=== PATIENT | male | born 1940 | race Caucasian/White ===

== ENCOUNTER 2021-12-31 15:31 | Observation (INO) ==
--- NOTE | 2021-12-31 15:53 | Emergency Department Note ---
Impression & Plan Generalized weakness, Gait instability ED Provider Note HISTORY OF PRESENT ILLNESS: Patient is a 81-year-old male presenting with weakness. Patient reports that since yesterday he has been having generalized weakness and difficulty getting around. Daughter at bedside reports it seems to be more his left side than anything. Patient is normally ambulatory without assistive devices, but walking today he has been very unsteady. He denies any chest pain or shortness of breath. Denies any lightheadedness or dizziness. Denies any anticoagulation use. He does not take any medications daily. Reports feeling weak on the left side and left upper and lower extremities. She denies any abdominal pain, nausea or vomiting. Denies any recent fevers. Denies any slurred speech. ROS: Constitutional: No fever, chills, +Weakness Skin: No rash or diaphoresis HENT: No headaches or congestion Eyes: No vision changes Cardio: No chest pain, palpitations or leg swelling Respiratory: No cough, wheezing or shortness of breath GI: No nausea, vomiting, diarrhea, constipation : No dysuria, polyuria MSK: No joint or back pain Neuro: No loss of sensation, confusion, numbness, tingling +left-sided weakness Psychiatric: No mood changes PHYSICAL EXAM: Constitutional: Patient appears in no acute distress. HENT: Head: Normocephalic and atraumatic. Eyes: EOMI, PERRL Mouth/Throat: Mucous membranes moist. Neck: Trachea midline. Neck supple. Cardiovascular: RRR, No murmurs, rubs or gallops. Intact distal pulses. Pulmonary/Chest: No respiratory distress. Breath sounds clear and equal bilaterally. No wheezes or rales. Abdominal: BS +. Abdomen soft, no tenderness, rebound or guarding. Back: No midline spinal tenderness, no paraspinal tenderness, no CVA tenderness. Musculoskeletal: No edema, tenderness or deformity noted. Skin: Warm and dry. No rash, erythema, pallor or cyanosis Psychiatric: Appropriate mood and affect for situation. Neurological: Alert and keenly responsive. Left lower facial droop. Able to raise eyebrows, close eyes, puff mouth, stick out tongue, move tongue left and right and raise palate symmetrically. Able to shrug shoulders. PERRLA. SILT to forehead below eye and at jawline. Can hear soft nose bilaterally. Good finger to nose. Strength 4/5 in LUE and LLE. Strength 5/5 in RUE and RLE. SILT throughout bilateral upper and lower extremities. Slight drift with LUE. MDM: - Vitals signs showed hypertension. - EKG negative for acute ischemic changes. Noted to be sinus bradycardia. - Laboratory workup showed normal WBC; stable electrolytes; normal TSH; normal troponin; normal BNP - CT head wo contrast negative for acute intracranial pathology. - CTA head and neck grossly unremarkable. - Hospitalist, Dr. Tinoco, consulted for admission - 324 mg PO aspirin ordered. - Patient admitted to hospitalist service for further evaluation and management. ASSESSMENT AND PLAN: Diagnosis: generalized weakness; gait instability Plan: admit Past Med/Surg History Medical History (Updated 12/31/21 @ 18:27 by Claudine Aguilera MD) No chronic problems Family History (Updated 02/22/19 @ 23:48 by Wali Keita) Other No significant family history Social History Smoking Status: Former smoker Preferred Language: Indonesian Feels Safe at Home: Yes Allergies Allergies Allergy/AdvReac Type Severity Reaction Status Date / Time No Known Allergies Allergy Verified 12/15/19 20:10 Home Meds Previous Rx's Medication Instructions Recorded meclizine 25 mg tablet 25 mg PO TID PRN dizziness #20 tabs 12/15/19 Results & Data (ED) Vital Signs Vital Signs - 24 hr 12/31/21 15:35 12/31/21 16:08 12/31/21 16:08 Temperature 36.4 C L Temperature Source Temporal Artery Scan Pulse Rate 64 Pulse Rate [Right Finger] 61 Respiratory Rate 18 Respiratory Effort / Characteristics Non-Labored Spontaneous Respiratory Depth Normal Respiratory Pattern Regular Blood Pressure 176/76 H Blood Pressure [Right Arm] 159/77 H Blood Pressure Mean 109 Blood Pressure Mean [Right Arm] 104 Blood Pressure Position Sitting Pulse Oximetry 96 98 98 Oxygen Delivery Method Room Air Room Air Room Air Sepsis Recent Fever Within 48 Hours No Sepsis New/Unexplained Change in Mental Status No Sepsis Action Taken by Nursing No Action Required Pulse Oximetry Post Tiitration 12/31/21 16:58 Temperature Temperature Source Pulse Rate Pulse Rate [Right Finger] Respiratory Rate Respiratory Effort / Characteristics Respiratory Depth Respiratory Pattern Blood Pressure Blood Pressure [Right Arm] Blood Pressure Mean Blood Pressure Mean [Right Arm] Blood Pressure Position Pulse Oximetry Oxygen Delivery Method Room Air Sepsis Recent Fever Within 48 Hours Sepsis New/Unexplained Change in Mental Status Sepsis Action Taken by Nursing Pulse Oximetry Post Tiitration 97 Laboratory Data Result diagrams: 12/31/21 16:00 12/31/21 16:00 Lab Results 12/31/21 12/31/21 12/31/21 Range/Units 16:00 16:00 16:00 WBC 7.00 (4.8-10.8) K/ul RBC 4.68 (4.63-6.08) M/uL Hgb 14.7 (14.0-18.0) g/dl Hct 44.0 (40.1-51.0) % MCV 94.0 (80.0-100.0) fL MCH 31.4 (25.0-34.0) pg MCHC 33.4 (32.0-36.0) g/dL RDW Std Deviation 44.3 (36.4-46.3) fL RDW Coeff of Razia 12.8 (11.5-14.5) % Plt Count 279 (130-400) K/uL MPV 9.2 L (9.4-12.4) fL Immature Gran % (Auto) 0.3 % Neut % (Auto) 60.5 % Lymph % (Auto) 27.4 % Fannin % (Auto) 9.9 % Eos % (Auto) 1.0 % Baso % (Auto) 0.9 % Neut # (Auto) 4.24 (1.4-6.5) K/uL Lymph # (Auto) 1.92 (1.2-3.4) K/uL Fannin # (Auto) 0.69 (0.24-0.82) K/uL Eos # (Auto) 0.07 (0-0.50) K/uL Baso # (Auto) 0.06 (0-0.2) K/uL Immature Gran # (Auto) 0.02 (0.00-0.02) K/uL Sodium 140 (136-145) mmol/L Potassium 4.0 (3.5-5.1) mmol/L Chloride 107 (98-107) mmol/L Carbon Dioxide 28 (21-32) mmol/L Anion Gap 5 (3-11) BUN 13 (6-23) mg/dl Creatinine 0.91 (0.6-1.4) mg/dl Est Cr Clr Drug Dosing 73.9 ml/min Est GFR ( Amer) 92.6 ml/min Est GFR (Non-Af Amer) 79.9 ml/min BUN/Creatinine Ratio 14.3 (10-20) Glucose 99 (70-99(Fasting)) mg/dl Lactate 1.0 (0.4-2.0) mmol/L Calcium 9.4 (8.5-10.1) mg/dl Magnesium 2.2 (1.7-2.4) mg/dl Total Bilirubin 0.8 (0.2-1.0) mg/dl AST 27 (13-39) U/L ALT 27 (7-52) U/L Alkaline Phosphatase 101 (34-104) U/L Troponin I High Sens 8.5 (0-20) pg/ml B-Natriuretic Peptide (0-100) pg/ml Total Protein 7.6 (6.0-8.3) gm/dl Albumin 4.3 (3.4-5.0) gm/dl Globulin 3.3 (2.5-4.0) gm/dl Albumin/Globulin Ratio 1.3 (0.9-2) TSH (0.300-4.500) uIu/ml SARS-CoV-2 (PCR) (Negative) 12/31/21 12/31/21 12/31/21 Range/Units 16:00 16:00 16:00 WBC (4.8-10.8) K/ul RBC (4.63-6.08) M/uL Hgb (14.0-18.0) g/dl Hct (40.1-51.0) % MCV (80.0-100.0) fL MCH (25.0-34.0) pg MCHC (32.0-36.0) g/dL RDW Std Deviation (36.4-46.3) fL RDW Coeff of Razia (11.5-14.5) % Plt Count (130-400) K/uL MPV (9.4-12.4) fL Immature Gran % (Auto) % Neut % (Auto) % Lymph % (Auto) % Fannin % (Auto) % Eos % (Auto) % Baso % (Auto) % Neut # (Auto) (1.4-6.5) K/uL Lymph # (Auto) (1.2-3.4) K/uL Fannin # (Auto) (0.24-0.82) K/uL Eos # (Auto) (0-0.50) K/uL Baso # (Auto) (0-0.2) K/uL Immature Gran # (Auto) (0.00-0.02) K/uL Sodium (136-145) mmol/L Potassium (3.5-5.1) mmol/L Chloride (98-107) mmol/L Carbon Dioxide (21-32) mmol/L Anion Gap (3-11) BUN (6-23) mg/dl Creatinine (0.6-1.4) mg/dl Est Cr Clr Drug Dosing ml/min Est GFR ( Amer) ml/min Est GFR (Non-Af Amer) ml/min BUN/Creatinine Ratio (10-20) Glucose (70-99(Fasting)) mg/dl Lactate (0.4-2.0) mmol/L Calcium (8.5-10.1) mg/dl Magnesium (1.7-2.4) mg/dl Total Bilirubin (0.2-1.0) mg/dl AST (13-39) U/L ALT (7-52) U/L Alkaline Phosphatase (34-104) U/L Troponin I High Sens (0-20) pg/ml B-Natriuretic Peptide 36 (0-100) pg/ml Total Protein (6.0-8.3) gm/dl Albumin (3.4-5.0) gm/dl Globulin (2.5-4.0) gm/dl Albumin/Globulin Ratio (0.9-2) TSH 3.014 (0.300-4.500) uIu/ml SARS-CoV-2 (PCR) NEGATIVE (Negative) Administered Medications Discontinued Medications Ioversol (Optiray 320 500ml) 104 ml IV ONCE ONE Stop: 12/31/21 17:09 Last Admin: 12/31/21 17:10 Dose: 104 ml Documented By: KIMANI Imaging Data Radiologist's Impression: Chest X-Ray 12/31/21 15:53 SINGLE VIEW CHEST CLINICAL HISTORY: Generalized weakness. FINDINGS: 2 AP, portable, upright chest radiographs are compared to study dated 12/15/2019. The examination is degraded by portable technique and patient rotation. The heart is enlarged noting atherosclerotic calcification of the thoracic aorta. The pulmonary vasculature is noncongested. Chronic interstitial thickening is similar to previous. The lungs and pleural spaces are clear noting bibasilar atelectasis. No pneumothorax is seen. The skeletal structures are osteopenic. The bony thorax is grossly intact. Arthritic change is seen in the left shoulder. Cholecystectomy clips are seen in the right upper quadrant. IMPRESSION: Cardiomegaly with no acute cardiopulmonary abnormality. ACT 112: Negative or not required by law. Electronically signed by: Ethan Carroll M.D. 12/31/2021 4:[address] 12/31/21 15:53 CT OF THE HEAD WITHOUT CONTRAST CLINICAL HISTORY: left-sided facial droop and left sided weakness COMPARISON STUDY: Head CT December 15, 2019. TECHNIQUE: Helical axial images of the head were obtained without IV contrast. Automated exposure control was utilized for the study. A dose lowering technique was utilized adhering to the principles of ALARA. FINDINGS: No acute intracranial hemorrhage, midline shift or mass effect is present. White matter hypodensities are similar to prior exam and favor small vessel disease. The ventricular system is unremarkable. The basal cisterns are patent. No extra-axial collections are present. There are no findings to suggest acute dural sinus thrombosis or acute territorial infarct. No significant calvarial abnormalities are present. Visualized portions of the sinuses and mastoid air cells are clear. IMPRESSION: No acute intracranial findings. ACT 112: Negative or not required by law. Electronically signed by: Mehdi Garza M.D. 12/31/2021 5:21 PM Head CTA 12/31/21 15:53 CTA ANGIOGRAPHY OF THE HEAD CLINICAL HISTORY: Left-sided weakness. COMPARISON STUDY: No previous studies for comparison. TECHNIQUE: Helical axial images of the head were obtained following uneventful intravenous administration of 104 cc of Optiray. Sagittal and coronal reconstructions were viewed as well as maximal intensity projections on an independent 3-D workstation. Automated exposure control was utilized for the study. A dose lowering technique was utilized adhering to the principles of ALARA. CT DOSE: 1124.13 mGy.cm FINDINGS: Brain volume is normal. Ventricular system is normal. Basal cisterns are patent. There are no extra-axial collections. Please note that the head CT will be reported separately. No acute hemorrhage was noted on this exam. The bilateral M1, M2, A1 and A2 segments are patent. There is no intracranial aneurysm. Large bilateral posterior communicating arteries are present. The posterior circulation is intact. There is no intracranial aneurysm. No central vessel occlusion is present. Major dural sinuses are patent. IMPRESSION: No central vessel occlusion. No intracranial aneurysm. ACT 112: Negative or not required by law. Electronically signed by: Mehdi Garza M.D. 12/31/2021 5:27 PM Neck CTA 12/31/21 15:53 CT angio neck with con CLINICAL HISTORY: 81 years-old Male with left-sided weakness. Acute left- sided facial droop with strokelike symptoms COMPARISON STUDY: CTA had of same day TECHNIQUE: Following the IV administration of 104 of Optiray, CT angiogram of the neck was performed from the aortic arch to the skull base. Images are reviewed in the axial, sagittal, and coronal planes. 3-D MIPS images are created and assessed. IV contrast was administered without complication. All measurements were calculated based on NASCET criteria. A dose lowering technique was utilized adhering to the principles of ALARA. FINDINGS: Three-vessel morphology of the thoracic aortic arch. Patency of the innominate and imaged subclavian arteries. Patency of the common and internal carotid arteries. Ulcerative plaque versus web involves the proximal cervical segment right ICA, image 232 series 6. Less than 50% luminal narrowing involves the proximal left ICA secondary to atheromatous plaque. The vertebral arteries are codominant and widely patent. Mild luminal narrowing with tortuosity of the proximal left vertebral artery origin. Basilar artery appears patent. Lung apices appear clear. There is no pneumothorax. Hypodense 1.2 cm right-sided thyroid nodule. Unremarkable soft tissues of the neck. Degenerative changes of the cervical spine. IMPRESSION:No arterial occlusion, high-grade stenosis, aneurysm or dissection. ACT 112: Negative or not required by law. The above report was generated using voice recognition software. It may contain grammatical, syntax or spelling errors. Electronically signed by: Sudarshan Powell M.D. 12/31/2021 5:50 PM Discharge Plan Visit Data Chief Complaint: Weakness Stated Complaint: GEN WEAKNESS MORE LEFT THAN RIGHT, ED Provider: Claudine Aguilera Discharge Problem: Generalized weakness, Gait instability Patient Disposition: Admitted As Inpatient Forms Stand Alone Forms: [facility] [employer] Prescriptions Prescriptions: No Action meclizine 25 mg tablet 25 mg PO TID PRN (Reason: dizziness) Qty: 20 0RF Referrals Referrals: Mak Avalos MD [Primary Care Provider] -
[2021-12-31 16:14] LABS: Basophils # (auto) 0.06 K/uL (0-0.2); Basophils % (auto) 0.9 %; Eosinophils # (auto) 0.07 K/uL (0-0.50); Hemoglobin 14.7 g/dl (14.0-18.0); Immature Granulocytes # (auto) 0.02 K/uL (0.00-0.02); Immature Granulocytes % (auto) 0.3 %; Lymphocytes # (auto) 1.92 K/uL (1.2-3.4); Lymphocytes % (auto) 27.4 %; Mean Corpuscular Hemoglobin 31.4 pg (25.0-34.0); Mean Corpuscular Hgb Conc 33.4 g/dL (32.0-36.0); Mean Platelet Volume 9.2 fL (9.4-12.4); Monocytes # (auto) 0.69 K/uL (0.24-0.82); Monocytes % (auto) 9.9 %; Neutrophils # (auto) 4.24 K/uL (1.4-6.5); Neutrophils % (auto) 60.5 %; Platelet Count 279 K/uL (130-400); RDW Coefficient of Variation 12.8 % (11.5-14.5); RDW Standard Deviation 44.3 fL (36.4-46.3); Red Blood Count 4.68 M/uL (4.63-6.08)
--- NOTE | 2021-12-31 16:14 | XRay Report ---
SINGLE VIEW CHEST CLINICAL HISTORY: Generalized weakness. FINDINGS: 2 AP, portable, upright chest radiographs are compared to study dated 12/15/2019. The examin ation is degraded by portable technique and patient rotation. The heart is enlarged noting atheroscle rotic calcification of the thoracic aorta. The pulmonary vasculature is noncongested. Chronic interst itial thickening is similar to previous. The lungs and pleural spaces are clear noting bibasilar atel ectasis. No pneumothorax is seen. The skeletal structures are osteopenic. The bony thorax is grossly intact. Arthritic change is seen in the left shoulder. Cholecystectomy clips are seen in the right up per quadrant. IMPRESSION: Cardiomegaly with no acute cardiopulmonary abnormality. ACT 112: Negative or not required by law. Electronically signed by: Ethan Carroll M.D. 12/31/2021 4:12 PM
[2021-12-31 16:40] LABS: Troponin I High Sensitivity 8.5 pg/ml (0-20)
[2021-12-31 16:51] LABS: Albumin Globulin Ratio 1.3 (0.9-2); Albumin Level 4.3 gm/dl (3.4-5.0); BUN Creatinine Ratio 14.3 (10-20); Bilirubin,Total 0.8 mg/dl (0.2-1.0); Calcium 9.4 mg/dl (8.5-10.1); Creatinine Clr Calc Pharmacy 73.9 ml/min; Est GFR (African American) 92.6 ml/min; Est GFR (Non-African American) 79.9 ml/min; Globulin 3.3 gm/dl (2.5-4.0); Magnesium 2.2 mg/dl (1.7-2.4); Total Protein 7.6 gm/dl (6.0-8.3)
[2021-12-31] MEDS ORDERED: OPTIRAY 320 500ml IV ONE (17:08)
--- NOTE | 2021-12-31 17:23 | CT Scan Report ---
CT OF THE HEAD WITHOUT CONTRAST CLINICAL HISTORY: left-sided facial droop and left sided weakness COMPARISON STUDY: Head CT December 15, 2019. TECHNIQUE: Helical axial images of the head were obtained without IV contrast. Automated exposure con trol was utilized for the study. A dose lowering technique was utilized adhering to the principles o f ALARA. FINDINGS: No acute intracranial hemorrhage, midline shift or mass effect is present. White matter hyp odensities are similar to prior exam and favor small vessel disease. The ventricular system is unrema rkable. The basal cisterns are patent. No extra-axial collections are present. There are no findings to suggest acute dural sinus thrombosis or acute territorial infarct. No significant calvarial abnorm alities are present. Visualized portions of the sinuses and mastoid air cells are clear. IMPRESSION: No acute intracranial findings. ACT 112: Negative or not required by law. Electronically signed by: Mehdi Garza M.D. 12/31/2021 5:21 PM
--- NOTE | 2021-12-31 17:29 | CT Scan Report ---
CTA ANGIOGRAPHY OF THE HEAD CLINICAL HISTORY: Left-sided weakness. COMPARISON STUDY: No previous studies for comparison. TECHNIQUE: Helical axial images of the head were obtained following uneventful intravenous administr ation of 104 cc of Optiray. Sagittal and coronal reconstructions were viewed as well as maximal inten sity projections on an independent 3-D workstation. Automated exposure control was utilized for the study. A dose lowering technique was utilized adhering to the principles of ALARA. CT DOSE: 1124.13 mGy.cm FINDINGS: Brain volume is normal. Ventricular system is normal. Basal cisterns are patent. There are no extra-axial collections. Please note that the head CT will be reported separately. No acute hemorr yan was noted on this exam. The bilateral M1, M2, A1 and A2 segments are patent. There is no intracr anial aneurysm. Large bilateral posterior communicating arteries are present. The posterior circulati on is intact. There is no intracranial aneurysm. No central vessel occlusion is present. Major dural sinuses are patent. IMPRESSION: No central vessel occlusion. No intracranial aneurysm. ACT 112: Negative or not required by law. Electronically signed by: Mehdi Garza M.D. 12/31/2021 5:27 PM
--- NOTE | 2021-12-31 17:51 | CT Scan Report ---
CT angio neck with con CLINICAL HISTORY: 81 years-old Male with left-sided weakness. Acute left-sided facial droop with s trokelike symptoms COMPARISON STUDY: CTA had of same day TECHNIQUE: Following the IV administration of 104 of Optiray, CT angiogram of the neck was performed from the aortic arch to the skull base. Images are reviewed in the axial, sagittal, and coronal plane s. 3-D MIPS images are created and assessed. IV contrast was administered without complication. All m easurements were calculated based on NASCET criteria. A dose lowering technique was utilized adherin g to the principles of ALARA. FINDINGS: Three-vessel morphology of the thoracic aortic arch. Patency of the innominate and imaged subclavian arteries. Patency of the common and internal carotid arteries. Ulcerative plaque versus web involves the proximal cervical segment right ICA, image 232 series 6. Less than 50% luminal narrowing involves the proximal left ICA secondary to atheromatous plaque. The vertebral arteries are codominant and wi christofer patent. Mild luminal narrowing with tortuosity of the proximal left vertebral artery origin. Bas ilar artery appears patent. Lung apices appear clear. There is no pneumothorax. Hypodense 1.2 cm right-sided thyroid nodule. Unre markable soft tissues of the neck. Degenerative changes of the cervical spine. IMPRESSION:No arterial occlusion, high-grade stenosis, aneurysm or dissection. ACT 112: Negative or not required by law. The above report was generated using voice recognition software. It may contain grammatical, syntax o r spelling errors. Electronically signed by: Sudarshan Powell M.D. 12/31/2021 5:50 PM
[2021-12-31] MEDS ORDERED: ASPIRIN CHEW 324 MG PO STA (18:26)
--- NOTE | 2021-12-31 18:33 | History & Physical Report ---
Date of Service December 31, 2021 Assessment & Plan (1) Left-sided weakness: (2) Facial droop: (3) History of colon cancer: Plan: This is a 81yo M with PMH of colon cancer s/p resection who presents with left sided weakness and lightheadedness starting last evening concerning for stroke. Left sided weakness Developed symptoms last evening and weakness continued today as well as noted facial droop Vital signs stable, lab work unremarkable. Covid and lyme negative. Anaplasma pending Head CT: No acute intracranial findings Head CTA: No central vessel occlusion. No intracranial aneurysm Neck CTA: No arterial occlusion, high-grade stenosis, aneurysm or dissection CXR: Cardiomegaly with no acute cardiopulmonary abnormality Pending work up: Brain MRI w/wo contrast, echo with bubble study for stroke evaluation Neuro checks, dysphasia screen and advance diet as tolerated, PT/OT/speech evaluations per stroke set protocol Given 324mg aspirin in the ED. Lipid panel and a1c in AM. Statin ordered for AM History of colon cancer Resection approximately 10 years ago DVT Ppx: SQ heparin Code status: FULL PCP: Robbie Dispo: Observation PCU Patient seen in collaboration with Dr. Tinoco. Please see addendum. History of Present Illness Chief Complaint: weakness Primary Care Provider: Mak Avalos MD This is a 81yo M with PMH of colon cancer s/p resection who presents with left sided weakness and lightheadedness starting last evening. He first noticed these symptoms last evening while driving and he kept veering to the left side unintentionally. Denies any blurry vision at the time but felt lightheaded. No chest pain or palpitations. 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 By the time he returned home, he noted generalized weakness that was worse on left side. noticed facial drooping on left side since this morning and had to help him put his jacket on which was very unusual. Denies any confusion. No paresthesias. No history of known stroke or CAD. Not on any medications. Family history significant for CAD and stroke. No fever, chills, CP, SOB, N/V, abdominal pain, dysuria, diarrhea or constipation. Allergies Allergy/AdvReac Type Severity Reaction Status Date / Time No Known Allergies Allergy Verified 12/15/19 20:10 Past Med/Surg History Medical History (Updated 12/31/21 @ 20:16 by Dayanara Pettit PA-C) History of colon cancer HLD (hyperlipidemia) diet controlled Surgical History (Updated 12/31/21 @ 20:16 by Dayanara Pettit PA-C) History of colon resection approx 10 years ago Hx of tonsillectomy S/P cholecystectomy Family History Other Heart disease Stroke Social History (Updated 12/31/21 @ 20:17 by Dayanara Pettit PA-C) Smoking Status: Never smoker Smoking End Date: 1967; Hx Alcohol Use: Yes Alcohol type: beer Alcohol Intake Frequency: Monthly or Less Hx Substance Use: No Preferred Language: Sinhala Communication Ability: Effective Induction 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 Physical Exam Physical Exam: Please see Dr. Tinoco's addendum for physical exam details. Results & Data Results & Data ([facility]) Vital Signs (Past 12 Hours) Vital Signs Temp Pulse Pulse Resp BP BP Pulse Ox 12/31/21 16:58 12/31/21 16:08 98 12/31/21 16:08 61 159/77 H 98 12/31/21 15:35 36.4 C L 64 18 176/76 H 96 O2 Del Method 12/31/21 16:58 Room Air 12/31/21 16:08 Room Air 12/31/21 16:08 Room Air 12/31/21 15:35 Room Air Laboratory Results Short CBC 12/31/21 Range/Units 16:00 WBC 7.00 (4.8-10.8) K/ul Hgb 14.7 (14.0-18.0) g/dl Hct 44.0 (40.1-51.0) % Plt Count 279 (130-400) K/uL BMP 12/31/21 16:00 Sodium 140 Potassium 4.0 Chloride 107 Carbon Dioxide 28 BUN 13 Creatinine 0.91 Glucose 99 Calcium 9.4 Liver Function 12/31/21 Range/Units 16:00 Total Bilirubin 0.8 (0.2-1.0) mg/dl AST 27 (13-39) U/L ALT 27 (7-52) U/L Alkaline Phosphatase 101 (34-104) U/L Albumin 4.3 (3.4-5.0) gm/dl Diagnostic Findings Chest X-Ray 12/31/21 15:53 SINGLE VIEW CHEST CLINICAL HISTORY: Generalized weakness. FINDINGS: 2 AP, portable, upright chest radiographs are compared to study dated 12/15/2019. The examination is degraded by portable technique and patient rotation. The heart is enlarged noting atherosclerotic calcification of the thoracic aorta. The pulmonary vasculature is noncongested. Chronic interstitial thickening is similar to previous. The lungs and pleural spaces are clear noting bibasilar atelectasis. No pneumothorax is seen. The skeletal structures are osteopenic. The bony thorax is grossly intact. Arthritic change is seen in the left shoulder. Cholecystectomy clips are seen in the right upper quadrant. IMPRESSION: Cardiomegaly with no acute cardiopulmonary abnormality. ACT 112: Negative or not required by law. Electronically signed by: Ethan Carroll M.D. 12/31/2021 4:[address] 12/31/21 15:53 CT OF THE HEAD WITHOUT CONTRAST CLINICAL HISTORY: left-sided facial droop and left sided weakness COMPARISON STUDY: Head CT December 15, 2019. TECHNIQUE: Helical axial images of the head were obtained without IV contrast. Automated exposure control was utilized for the study. A dose lowering techniq ue was utilized adhering to the principles of ALARA. FINDINGS: No acute intracranial hemorrhage, midline shift or mass effect is present. White matter hypodensities are similar to prior exam and favor small vessel disease. The ventricular system is unremarkable. The basal cisterns are patent. No extra-axial collections are present. There are no findings to suggest acute dural sinus thrombosis or acute territorial infarct. No significant calvarial abnormalities are present. Visualized portions of the sinuses and mastoid air cells are clear. IMPRESSION: No acute intracranial findings. ACT 112: Negative or not required by law. Electronically signed by: Mehdi Garza M.D. 12/31/2021 5:21 PM Head CTA 12/31/21 15:53 CTA ANGIOGRAPHY OF THE HEAD CLINICAL HISTORY: Left-sided weakness. COMPARISON STUDY: No previous studies for comparison. TECHNIQUE: Helical axial images of the head were obtained following uneventful intravenous administration of 104 cc of Optiray. Sagittal and coronal reconstructions were viewed as well as maximal intensity projections on an independent 3-D workstation. Automated exposure control was utilized for the study. A dose lowering technique was utilized adhering to the principles of ALARA. CT DOSE: 1124.13 mGy.cm FINDINGS: Brain volume is normal. Ventricular system is normal. Basal cisterns a re patent. There are no extra-axial collections. Please note that the head CT will be reported separately. No acute hemorrhage was noted on this exam. The bilateral M1, M2, A1 and A2 segments are patent. There is no intracranial aneurysm. Large bilateral posterior communicating arteries are present. The posterior circulation is intact. There is no intracranial aneurysm. No central vessel occlusion is present. Major dural sinuses are patent. IMPRESSION: No central vessel occlusion. No intracranial aneurysm. ACT 112: Negative or not required by law. Electronically signed by: Mehdi Garza M.D. 12/31/2021 5:27 PM Neck CTA 12/31/21 15:53 CT angio neck with con CLINICAL HISTORY: 81 years-old Male with left-sided weakness. Acute left- sided facial droop with strokelike symptoms COMPARISON STUDY: CTA had of same day TECHNIQUE: Following the IV administration of 104 of Optiray, CT angiogram of the neck was performed from the aortic arch to the skull base. Images are reviewed in the axial, sagittal, and coronal planes. 3-D MIPS images are created and assessed. IV contrast was administered without complication. All measurements were calculated based on NASCET criteria. A dose lowering technique was utilized adhering to the principles of ALARA. FINDINGS: Three-vessel morphology of the thoracic aortic arch. Patency of the innominate and imaged subclavian arteries. Patency of the common and internal carotid arteries. Ulcerative plaque versus web involves the proximal cervical segment right ICA, image 232 series 6. Less than 50% luminal narrowing involves the proximal left ICA secondary to atheromatous plaque. The vertebral arteries are codominant and widely patent. Mild luminal narrowing with tortuosity of the proximal left vertebral artery origin. Basilar artery appears patent. Lung apices appear clear. There is no pneumothorax. Hypodense 1.2 cm right-sided thyroid nodule. Unremarkable soft tissues of the neck. Degenerative changes of the cervical spine. IMPRESSION:No arterial occlusion, high-grade stenosis, aneurysm or dissection. ACT 112: Negative or not required by law. The above report was generated using voice recognition software. It may contain grammatical, syntax or spelling errors. Electronically signed by: Sudarshan Powell M.D. 12/31/2021 5:50 PM Supervising Physician Co-Signing Physician Notes Pt is a 81 y/o M with hx of Colon Ca s/p partial colectomy admitted for acute generalized weakness and L facial droop. 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 Normal strength on b/l LE Psych: AAOx3, normal affect A/P: L facial droop and LUE weakness: -symptoms for 24 hrs -CTA head, neck: no significant stenosis -will get lyme titer -will obtain MRI Brain, Echo and admit to tele -neurology consult -start pt on aspirin and statin -will monitor BP Agree with A/P by Dayanara Pettit PA-C
[2021-12-31 19:31] LABS: Appearance Urine Clear (Clear); Bilirubin Urine Negative (Negative); Blood Urine Negative (Negative); Color Urine Yellow; Glucose Urine UA Negative (Negative); Ketones Urine Negative (Negative); Leukocyte Esterase Urine Negative (Negative); Nitrite Urine Negative (Negative); Protein Urine Negative (Negative); Specific Gravity Urine 1.032 (1.000-1.030); Urobilinogen Urine Negative (Negative); pH Urine 7.5 (4.5-7.5)
[2021-12-31 19:57] LABS: Lyme Ab IgG w/WB Rflx Negative (Negative); Lyme Ab IgM w/WB Rflx Negative (Negative)
[2021-12-31] MEDS ORDERED: ONDANSETRON INJ 2 MG/ML 2 ML VIAL IV PRN (20:36)
[2021-12-31] MEDS ORDERED: ACETAMINOPHEN 325 MG TAB PO PRN (20:36)
[2021-12-31] MEDS ORDERED: POLYETHYLENE (MIRALAX) 17 GM PACK PO PRN (20:36)
[2021-12-31] MEDS ORDERED: PHARMACIST DISCHARGE MED REC CONSULT PRN (20:36)
[2021-12-31] MEDS ORDERED: GADOBUTROL 65ML VIAL IV ONE (21:38)
[2022-01-01 06:10] LABS: Hematocrit (blood only) 40.9 % (40.1-51.0); Hemoglobin 14.1 g/dl (14.0-18.0); Mean Corpuscular Hemoglobin 31.8 pg (25.0-34.0); Mean Corpuscular Hgb Conc 34.5 g/dL (32.0-36.0); Mean Corpuscular Volume 92.1 fL (80.0-100.0); Mean Platelet Volume 9.7 fL (9.4-12.4); Platelet Count 246 K/uL (130-400); RDW Coefficient of Variation 12.9 % (11.5-14.5); RDW Standard Deviation 43.5 fL (36.4-46.3); Red Blood Count 4.44 M/uL (4.63-6.08); White Blood Count 6.82 K/ul (4.8-10.8)
[2022-01-01 06:41] LABS: BUN Creatinine Ratio 16.5 (10-20); Calcium 8.7 mg/dl (8.5-10.1); Chol HDL Ratio 5.4 (0-5); Creatinine Clr Calc Pharmacy 79.1 ml/min; Est GFR (African American) 96.1 ml/min; Est GFR (Non-African American) 82.9 ml/min; Potassium 3.8 mmol/L (3.5-5.1)
[2022-01-01 07:28] LABS: Estimated Average Glucose 105 mg/dl; Hemoglobin A1C 5.3 % (4.5-5.6)
[2022-01-01] MEDS ORDERED: ATORVASTATIN 40 MG TAB PO SCH (09:00)
--- NOTE | 2022-01-01 09:51 | Magnetic Resonance Report ---
MR brain wo/w con HISTORY: 81 years-old Male stroke eval, L sided weakness + facial droop, acute strokelike symptoms. COMPARISON: Head CT, CTA head and neck studies of same day. TECHNIQUE: Multiplanar and multisequence MRI of the brain was obtained both with and without the use of 9.5 cc Gadavist. FINDINGS: Small areas of restricted diffusion are noted involving the right frontal lobe barkley radiata and krystian tiform nucleus measuring up to approximately 10 mm. No acute or subacute territorial infarct identifi ed. Midline structures appear unremarkable. Degenerative changes of the imaged cervical spine. No acute intracranial hemorrhage, midline shift, abnormal extra-axial collection, hydrocephalus or in tracranial mass. Involutional changes with moderate T2/FLAIR hyperintense foci throughout the white m atter. Cerebral venous sinuses and major arterial flow voids appear patent. Prior bilateral lens repa ir. The skull, soft tissues, mastoid air cells and paranasal sinuses appear unremarkable. No abnormal enhancement. IMPRESSION: 1. Small acute lacunar infarcts of the right frontal lobe barkley radiata and lentiform nucleus. 2. No acute intracranial hemorrhage or midline shift. 3. No abnormal enhancement. 4. Involutional changes with chronic microvascular ischemic disease. ACT 112: Negative or not required by law. The above report was generated using voice recognition software. It may contain grammatical, syntax o r spelling errors. Dictated: 01/01/2022 8:38 AM Transcribed: 01/01/2022 9:26 AM Leidy [id number] [email or web address]_Alda Electronically signed by: Sudarshan Powell M.D. 01/01/2022 9:50 AM
[2022-01-01] MEDS ORDERED: ASPIRIN 81 MG ECTAB PO SCH (12:30)
--- NOTE | 2022-01-01 14:44 | Neurology Consultation ---
Date of Consultation January 01, 2022 Assessment & Plan (1) CVA (cerebral vascular accident): Impression: The patient had acute left-sided weakness the day before yesterday. He presented emergency department with gradually improving neurological symptoms, and he was outside of thrombolytic treatment window. He has hyperlipidemia and elevated blood pressure, as well as small vessel disease. His neurological symptoms improved and he is back to his baseline currently. MRI showed a right basal ganglia/internal capsule small, acute ischemic strokes. The most likely mechanism of stroke is small vessel disease. Atherothrombotic event is in differential. There is no finding to suggest cardioembolic et iology. Recommendations: Aspirin 81 mg daily. Based on the patient's age and history of colon cancer, we do not think that double antiplatelet treatment is indicated at this time. Continue on Lipitor. Goal LDL level is lower than 70. Dose adjustment as needed. Management of blood pressure. Goal blood pressure is below 130/80. The patient should be excused from work till next week. Follow-up with primary care physician regarding blood pressure management. The patient is neurologically stable and can be discharged home today. Follow-up with neurology. I will contact with [facility] neurology to set up a follow-up appointment. (2) HTN (hypertension): Impression: The patient's blood pressure was significantly elevated on admission, which was probably reactive to acute stroke. It has been trending down since then, without additional treatment. Recommendations: As seen above. (3) HLD (hyperlipidemia): Impression: The patient has hyperlipidemia, with goal LDL level is below 70. He is started on Lipitor. Plan Thank you for the consultation. History of Present Illness Reason for Consultation: CVA Requesting Physician: Dayanara Pettit Attending Physician: Rodrigo Hernandez MD History of Present Illness The patient is a 81-year-old right-handed gentleman, who was brought to emergency department yesterday, because of left-sided weakness and left facial droop. Apparently, the patient works full-time the day before yesterday, when he returned back to home, his noticed that he was having generalized weakness, which was worse on the left side. They did not seek medical attention right away. Yesterday, he was having persistent left-sided weakness, and he decided to come to emergency department. When they arrived, the patient was outside of thrombolytic treatment window. Head CT, CT angiography of head and neck did not show acute pathology including large vessel occlusion, intracranial hemorrhage, but showed small vessel disease related periventricular signal changes. His symptoms was improving yesterday, other than mild left facial droop and left-sided weakness. His blood pressure was elevated significantly on admission which has been trending down without any additional treatment. The patient was started on Lipitor and aspirin on admission. Serum lipid panel showed elevated LDL. Echocardiogram was unremarkable. Cardiac rhythm monitoring has been showing sinus rhythm. Couple years ago, the patient had an episode of dizziness and lightheadedness, which was considered as probable TIA. Currently, the patient is back to his baseline. He he has no residual weakness or other neurological symptoms. Brain MRI today showed right basal ganglia/internal capsule small, ischemic strokes as well as periventricular, white matter disease related chronic ischemic changes. I have reviewed the patient's chart including imaging studies and visualized them personally. I have discussed the case with the patient and his , and I have answered their questions in detail. Allergies Allergy/AdvReac Type Severity Reaction Status Date / Time No Known Allergies Allergy Verified 12/15/19 20:10 Home Medications Medication Instructions Recorded Confirmed Type aspirin 81 mg tablet,delayed 81 mg PO QAM #30 tabs 01/01/22 Rx release atorvastatin 40 mg tablet 40 mg PO QAM #30 tabs 01/01/22 Rx Patient History Medical History (Updated 01/01/22 @ 14:43 by Timo Harris MD) History of colon cancer HLD (hyperlipidemia) diet controlled Surgical History History of colon resection approx 10 years ago Hx of tonsillectomy S/P cholecystectomy Family History Other Heart disease Stroke Social History Smoking Status: Never smoker Smoking End Date: 1967; Hx Alcohol Use: Yes Alcohol type: beer Alcohol Intake Frequency: Monthly or Less Hx Substance Use: No Preferred Language: Turkmen Communication Ability: Effective Services Advisor Required: No Current Living Situation: Spouse Other Information That Helps Us Care for You: No Feels Safe at Home: Yes Safety Concerns: Feels Safe At This Time Assistive Devices: None Review of Systems Review of Systems: All systems reviewed & are unremarkable except as noted in HPI & below Physical Exam Physical Exam: General Examination: Constitutional: Well developed person in no acute distress. HEENT: Normal exam with inspection. CV: Hearth rhythm is regular. Neck: Supple, no carotid bruits. Lungs: Non-labored and comfortable breathing. Abdomen: Soft, non-tender, non-distended. Skin: No rash or ecchymosis. Extremities: No edema or cyanosis NEUROLOGICAL EXAMINATION: Mental Status: Alert and oriented to place, person and time. Cranial Nerves: II-XII are intact. No nystagmus. Funduscopy: Normal looking optic discs. Motor: 5/5 in all extremities without asymmetry. Tone: Normal without spasticity or rigidity. Sensory: Intact to all sensory modalities. DTRs: 2- all. No Babinski Coordination: No dysmetria with FTN testing. Speech: Fluent. Comprehension is intact. Gait: Normal. No ataxia or abnormal walking pattern. Musculoskeletal: Normal muscle bulk, no atrophy. Results & Data ([facility]) Vital Signs (Past 12 Hours) Vital Signs Temp Pulse Pulse Resp BP Pulse Ox O2 Del Method 01/01/22 12:25 36.4 C L 62 16 145/75 H 94 Room Air 01/01/22 08:23 37 C 64 16 139/73 97 Room Air 01/01/22 07:53 51 L 01/01/22 04:56 36.7 C 58 L 23 124/56 L 96 Room Air Laboratory Results Laboratory Results - last 24 hr 12/31/21 12/31/21 12/31/21 16:00 16:00 16:00 WBC 7.00 RBC 4.68 Hgb 14.7 Hct 44.0 MCV 94.0 MCH 31.4 MCHC 33.4 RDW Std Deviation 44.3 RDW Coeff of Razia 12.8 Plt Count 279 MPV 9.2 L Immature Gran % (Auto) 0.3 Neut % (Auto) 60.5 Lymph % (Auto) 27.4 [place] % (Auto) 9.9 Eos % (Auto) 1.0 Baso % (Auto) 0.9 Neut # (Auto) 4.24 Lymph # (Auto) 1.92 [place] # (Auto) 0.69 Eos # (Auto) 0.07 Baso # (Auto) 0.06 Immature Gran # (Auto) 0.02 Sodium 140 Potassium 4.0 Chloride 107 Carbon Dioxide 28 Anion Gap 5 BUN 13 Creatinine 0.91 Est Cr Clr Drug Dosing 73.9 Est GFR ( Amer) 92.6 Est GFR (Non-Af Amer) 79.9 BUN/Creatinine Ratio 14.3 Glucose 99 Estimat Average Glucose Hemoglobin A1c Lactate 1.0 Calcium 9.4 Magnesium 2.2 Total Bilirubin 0.8 AST 27 ALT 27 Alkaline Phosphatase 101 Troponin I High Sens 8.5 B-Natriuretic Peptide Total Protein 7.6 Albumin 4.3 Globulin 3.3 Albumin/Globulin Ratio 1.3 Triglycerides Cholesterol LDL Cholesterol, Calc VLDL Cholesterol, Calc HDL Cholesterol Cholesterol/HDL Ratio TSH Urine Color Urine Appearance Urine pH Ur Specific [place] Urine Protein Urine Glucose (UA) Urine Ketones Urine Blood Urine Nitrite Urine Bilirubin Urine Urobilinogen Ur Leukocyte Esterase A. phagocytophilum DNA Lyme Disease IgG Ab Lyme Disease IgM Ab SARS-CoV-2 (PCR) 12/31/21 12/31/21 12/31/21 16:00 16:00 16:00 WBC RBC Hgb Hct MCV MCH MCHC RDW Std Deviation RDW Coeff of Razia Plt Count MPV Immature Gran % (Auto) Neut % (Auto) Lymph % (Auto) [place] % (Auto) Eos % (Auto) Baso % (Auto) Neut # (Auto) Lymph # (Auto) [place] # (Auto) Eos # (Auto) Baso # (Auto) Immature Gran # (Auto) Sodium Potassium Chloride Carbon Dioxide Anion Gap BUN Creatinine Est Cr Clr Drug Dosing Est GFR ( Amer) Est GFR (Non-Af Amer) BUN/Creatinine Ratio Glucose Estimat Average Glucose Hemoglobin A1c Lactate Calcium Magnesium Total Bilirubin AST ALT Alkaline Phosphatase Troponin I High Sens B-Natriuretic Peptide 36 Total Protein Albumin Globulin Albumin/Globulin Ratio Triglycerides Cholesterol LDL Cholesterol, Calc VLDL Cholesterol, Calc HDL Cholesterol Cholesterol/HDL Ratio TSH 3.014 Urine Color Urine Appearance Urine pH Ur Specific [place] Urine Protein Urine Glucose (UA) Urine Ketones Urine Blood Urine Nitrite Urine Bilirubin Urine Urobilinogen Ur Leukocyte Esterase A. phagocytophilum DNA Lyme Disease IgG Ab Lyme Disease IgM Ab SARS-CoV-2 (PCR) NEGATIVE 12/31/21 12/31/21 12/31/21 16:00 16:00 19:00 WBC RBC Hgb Hct MCV MCH MCHC RDW Std Deviation RDW Coeff of Razia Plt Count MPV Immature Gran % (Auto) Neut % (Auto) Lymph % (Auto) [place] % (Auto) Eos % (Auto) Baso % (Auto) Neut # (Auto) Lymph # (Auto) [place] # (Auto) Eos # (Auto) Baso # (Auto) Immature Gran # (Auto) Sodium Potassium Chloride Carbon Dioxide Anion Gap BUN Creatinine Est Cr Clr Drug Dosing Est GFR ( Amer) Est GFR (Non-Af Amer) BUN/Creatinine Ratio Glucose Estimat Average Glucose Hemoglobin A1c Lactate Calcium Magnesium Total Bilirubin AST ALT Alkaline Phosphatase Troponin I High Sens B-Natriuretic Peptide Total Protein Albumin Globulin Albumin/Globulin Ratio Triglycerides Cholesterol LDL Cholesterol, Calc VLDL Cholesterol, Calc HDL Cholesterol Cholesterol/HDL Ratio TSH Urine Color Yellow Urine Appearance Clear Urine pH 7.5 Ur Specific [place] 1.032 H Urine Protein Negative Urine Glucose (UA) Negative Urine Ketones Negative Urine Blood Negative Urine Nitrite Negative Urine Bilirubin Negative Urine Urobilinogen Negative Ur Leukocyte Esterase Negative A. phagocytophilum DNA Pending Lyme Disease IgG Ab Negative Lyme Disease IgM Ab Negative SARS-CoV-2 (PCR) 12/31/21 01/01/22 01/01/22 19:34 05:28 05:28 WBC 6.82 RBC 4.44 L Hgb 14.1 Hct 40.9 MCV 92.1 MCH 31.8 MCHC 34.5 RDW Std Deviation 43.5 RDW Coeff of Razia 12.9 Plt Count 246 MPV 9.7 Immature Gran % (Auto) Neut % (Auto) Lymph % (Auto) [place] % (Auto) Eos % (Auto) Baso % (Auto) Neut # (Auto) Lymph # (Auto) [place] # (Auto) Eos # (Auto) Baso # (Auto) Immature Gran # (Auto) Sodium 142 Potassium 3.8 Chloride 109 H Carbon Dioxide 27 Anion Gap 6 BUN 14 Creatinine 0.85 Est Cr Clr Drug Dosing 79.1 Est GFR ( Amer) 96.1 Est GFR (Non-Af Amer) 82.9 BUN/Creatinine Ratio 16.5 Glucose 88 Estimat Average Glucose Hemoglobin A1c Lactate Calcium 8.7 Magnesium Total Bilirubin AST ALT Alkaline Phosphatase Troponin I High Sens 10.1 B-Natriuretic Peptide Total Protein Albumin Globulin Albumin/Globulin Ratio Triglycerides 114 Cholesterol 199 LDL Cholesterol, Calc 139 VLDL Cholesterol, Calc 23 HDL Cholesterol 37 Cholesterol/HDL Ratio 5.4 H TSH Urine Color Urine Appearance Urine pH Ur Specific [place] Urine Protein Urine Glucose (UA) Urine Ketones Urine Blood Urine Nitrite Urine Bilirubin Urine Urobilinogen Ur Leukocyte Esterase A. phagocytophilum DNA Lyme Disease IgG Ab Lyme Disease IgM Ab SARS-CoV-2 (PCR) 01/01/22 05:28 WBC RBC Hgb Hct MCV MCH MCHC RDW Std Deviation RDW Coeff of Razia Plt Count MPV Immature Gran % (Auto) Neut % (Auto) Lymph % (Auto) [place] % (Auto) Eos % (Auto) Baso % (Auto) Neut # (Auto) Lymph # (Auto) [place] # (Auto) Eos # (Auto) Baso # (Auto) Immature Gran # (Auto) Sodium Potassium Chloride Carbon Dioxide Anion Gap BUN Creatinine Est Cr Clr Drug Dosing Est GFR ( Amer) Est GFR (Non-Af Amer) BUN/Creatinine Ratio Glucose Estimat Average Glucose 105 Hemoglobin A1c 5.3 Lactate Calcium Magnesium Total Bilirubin AST ALT Alkaline Phosphatase Troponin I High Sens B-Natriuretic Peptide Total Protein Albumin Globulin Albumin/Globulin Ratio Triglycerides Cholesterol LDL Cholesterol, Calc VLDL Cholesterol, Calc HDL Cholesterol Cholesterol/HDL Ratio TSH Urine Color Urine Appearance Urine pH Ur Specific [place] Urine Protein Urine Glucose (UA) Urine Ketones Urine Blood Urine Nitrite Urine Bilirubin Urine Urobilinogen Ur Leukocyte Esterase A. phagocytophilum DNA Lyme Disease IgG Ab Lyme Disease IgM Ab SARS-CoV-2 (PCR) Diagnostic Findings Chest X-Ray 12/31/21 15:53 SINGLE VIEW CHEST CLINICAL HISTORY: Generalized weakness. FINDINGS: 2 AP, portable, upright chest radiographs are compared to study dated 12/15/2019. The examination is degraded by portable technique and patient rotation. The heart is enlarged noting atherosclerotic calcification of the thoracic aorta. The pulmonary vasculature is noncongested. Chronic interstitial thickening is similar to previous. The lungs and pleural spaces are clear noting bibasilar atelectasis. No pneumothorax is seen. The skeletal structures are osteopenic. The bony thorax is grossly intact. Arthritic change is seen in the left shoulder. Cholecystectomy clips are seen in the right upper quadrant. IMPRESSION: Cardiomegaly with no acute cardiopulmonary abnormality. ACT 112: Negative or not required by law. Electronically signed by: Ethan Carroll M.D. 12/31/2021 4:[address] 12/31/21 15:53 CT OF THE HEAD WITHOUT CONTRAST CLINICAL HISTORY: left-sided facial droop and left sided weakness COMPARISON STUDY: Head CT December 15, 2019. TECHNIQUE: Helical axial images of the head were obtained without IV contrast. Automated exposure control was utilized for the study. A dose lowering technique was utilized adhering to the principles of ALARA. FINDINGS: No acute intracranial hemorrhage, midline shift or mass effect is present. White matter hypodensities are similar to prior exam and favor small vessel disease. The ventricular system is unremarkable. The basal cisterns are patent. No extra-axial collections are present. There are no findings to suggest acute dural sinus thrombosis or acute territorial infarct. No significant calvarial abnormalities are present. Visualized portions of the sinuses and mastoid air cells are clear. IMPRESSION: No acute intracranial findings. ACT 112: Negative or not required by law. Electronically signed by: Mehdi Garza M.D. 12/31/2021 5:21 PM Head CTA 12/31/21 15:53 CTA ANGIOGRAPHY OF THE HEAD CLINICAL HISTORY: Left-sided weakness. COMPARISON STUDY: No previous studies for comparison. TECHNIQUE: Helical axial images of the head were obtained following uneventful intravenous administration of 104 cc of Optiray. Sagittal and coronal reconstructions were viewed as well as maximal intensity projections on an independent 3-D workstation. Automated exposure control was utilized for the study. A dose lowering technique was utilized adhering to the principles of ALARA. CT DOSE: 1124.13 mGy.cm FINDINGS: Brain volume is normal. Ventricular system is normal. Basal cisterns are patent. There are no extra-axial collections. Please note that the head CT will be reported separately. No acute hemorrhage was noted on this exam. The bilateral M1, M2, A1 and A2 segments are patent. There is no intracranial aneurysm. Large bilateral posterior communicating arteries are present. The posterior circulation is intact. There is no intracranial aneurysm. No central vessel occlusion is present. Major dural sinuses are patent. IMPRESSION: No central vessel occlusion. No intracranial aneurysm. ACT 112: Negative or not required by law. Electronically signed by: Mehdi Garza M.D. 12/31/2021 5:27 PM Neck CTA 12/31/21 15:53 CT angio neck with con CLINICAL HISTORY: 81 years-old Male with left-sided weakness. Acute left- sided facial droop with strokelike symptoms COMPARISON STUDY: CTA had of same day TECHNIQUE: Following the IV administration of 104 of Optiray, CT angiogram of the neck was performed from the aortic arch to the skull base. Images are reviewed in the axial, sagittal, and coronal planes. 3-D MIPS images are created and assessed. IV contrast was administered without complication. All measurements were calculated based on NASCET criteria. A dose lowering technique was utilized adhering to the principles of ALARA. FINDINGS: Three-vessel morphology of the thoracic aortic arch. Patency of the innominate and imaged subclavian arteries. Patency of the common and internal carotid arteries. Ulcerative plaque versus web involves the proximal cervical segment right ICA, image 232 series 6. Less than 50% luminal narrowing involves the proximal left ICA secondary to atheromatous plaque. The vertebral arteries are codominant and widely patent. Mild luminal narrowing with tortuosity of the proximal left vertebral artery origin. Basilar artery appears patent. Lung apices appear clear. There is no pneumothorax. Hypodense 1.2 cm right-sided thyroid nodule. Unremarkable soft tissues of the neck. Degenerative changes of the cervical spine. IMPRESSION:No arterial occlusion, high-grade stenosis, aneurysm or dissection. ACT 112: Negative or not required by law. The above report was generated using voice recognition software. It may contain grammatical, syntax or spelling errors. Electronically signed by: Sudarshan Powell M.D. 12/31/2021 5:50 PM Brain MRI 12/31/21 20:36 MR brain wo/w con HISTORY: 81 years-old Male stroke eval, L sided weakness + facial droop, acute strokelike symptoms. COMPARISON: Head CT, CTA head and neck studies of same day. TECHNIQUE: Multiplanar and multisequence MRI of the brain was obtained both with and without the use of 9.5 cc Gadavist. FINDINGS: Small areas of restricted diffusion are noted involving the right frontal lobe barkley radiata and lentiform nucleus measuring up to approximately 10 mm. No acute or subacute territorial infarct identified. Midline structures appear unremarkable. Degenerative changes of the imaged cervical spine. No acute intracranial hemorrhage, midline shift, abnormal extra-axial collection, hydrocephalus or intracranial mass. Involutional changes with moderate T2/FLAIR hyperintense foci throughout the white matter. Cerebral venous sinuses and major arterial flow voids appear patent. Prior bilateral lens repair. The skull, soft tissues, mastoid air cells and paranasal sinuses appear unremarkable. No abnormal enhancement. IMPRESSION: 1. Small acute lacunar infarcts of the right frontal lobe barkley radiata and lentiform nucleus. 2. No acute intracranial hemorrhage or midline shift. 3. No abnormal enhancement. 4. Involutional changes with chronic microvascular ischemic disease. ACT 112: Negative or not required by law. The above report was generated using voice recognition software. It may contain grammatical, syntax or spelling errors. Dictated: 01/01/2022 8:38 AM Transcribed: 01/01/2022 9:26 AM Leidy [id number] [email or web address] Electronically signed by: Sudarshan Powell M.D. 01/01/2022 9:50 AM ECHO--reviewed
[2022-01-01] MEDS ORDERED: STROKE PATIENT DISCHARGE STA (14:46)
--- NOTE | 2022-01-01 14:48 | Discharge Summary ---
Date of Service January 01, 2022 Admission HPI Per Admitting Provider This is a 81yo M with PMH of colon cancer s/p resection who presents with left sided weakness and lightheadedness starting last evening. He first noticed these symptoms last evening while driving and he kept veering to the left side unintentionally. Denies any blurry vision at the time but felt lightheaded. No chest pain or palpitations. 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 By the time he returned home, he noted generalized weakness that was worse on left side. noticed facial drooping on left side since this morning and had to help him put his jacket on which was very unusual. Denies any confusion. No paresthesias. No history of known stroke or CAD. Not on any medications. Family history significant for CAD and stroke. No fever, chills, CP, SOB, N/V, abdominal pain, dysuria, diarrhea or constipation. 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 Normal strength on b/l LE Psych: AAOx3, normal affect Principal Diagnosis Acutely stroke in right frontal lobe coronary radiata and lentiform nucleus Discharge Exam Constitutional: WD/WN, vitals as above, NAD, sitting up in bed, pleasant, conversing easily Respiratory: normal respiratory effort, lungs clear to auscultation, no wheeze, rales, rhonchi. Normal insp/exp effort, no accessory muscle use Cardiovascular: RRR, no murmur, no edema Vessels: no JVD or carotid bruit Chest: normal inspection of chest Abdomen: normal bowel sounds, soft, nontender, no hepatosplenomegaly Musculoskeletal: no cyanosis or clubbing, extremities motor strength 5/5 Skin: no rashes, warm and dry normal turgor Neurologic: PERRL, EOMI, accommodation nl, no face palsy, no dysarthria CN's II- XI intact bilaterally and moves all extremities Psychiatric: A+Ox3, euthymic affect Lymphatic: no cervical or axillary lymphadenopathy : deferred Discharge Data Allergies Allergy/AdvReac Type Severity Reaction Status Date / Time No Known Allergies Allergy Verified 12/15/19 20:10 Consultations 12/31/21 18:26 ED Decision to Admit Stat 01/01/22 08:00 Consult Neurology Routine Ordered Studies 12/31/21 15:53 CT head/brain wo con Stat CTA head w con [CT angio head w con] Stat CTA neck with con [CT angio neck with con] Stat 12/31/21 20:36 MR brain wo/w con Routine Hospital Course (1) Acute stroke due to ischemia: (2) Left-sided weakness: (3) Facial droop: (4) History of colon cancer: This is a 81yo M with PMH of colon cancer s/p resection who presents with left sided weakness and lightheadedness starting last evening concerning for stroke. CT head did not show any acute abnormality. CTA head and neck did not show any large vessel occlusion. MRI was positive for acute stroke in right frontal lobe coronary radiata and lentiform nucleus. Echocardiogram was done which showed EF of 60 to 65%. Telemetry showed sinus rhythm with no episode of arrhythmia. Neurology was consulted; recommended aspirin and statin for prevention of future stroke. His A1c was 5.3%. His blood pressure was elevated on admission which was probably reactive to acute stroke. Patient blood pressu re improved during the hospitalization. He was asked to follow-up with his primary care doctor for blood pressure management. Follow-up appointment for was set up for him next week with his primary care doctor. On the day after discharge, patient did not have any neurological deficit. His symptoms on admission had resolved. Total Time Total Time Spent Total Time Spent (In Minutes): 35 Total Time Includes: Examination of the Patient, Discharge Planning, Medication Reconciliation, Communication With Other Providers and Other Discharge Plan Discharge Items Patient Disposition: Hospice - Home Reason For Visit: L SIDED WEAKNESS, STROKE EVAL Discharge Diagnosis: Acutely stroke in right frontal lobe coronary radiata and lentiform nucleus Activity: Resume your previous activity Non-emergency contact: Primary Care Provider Call non-emergency contact if: you have any medication questions and your sympto ms worsen Follow-up/Referrals: Mak Avalos MD [Primary Care Provider] - Diet: Regular Addtl Attending Provider Instructions: You were admitted to the hospital with left-sided weakness. You are found to have acute stroke of the right frontal lobe barkley radiata and lentiform nucleus. You are prescribed aspirin and Lipitor for prevention of future stroke. Please monitor your blood pressure at home and follow-up with your primary care doctor regarding long-term management for high blood pressure. You have follow-up with your primary care doctor on January 07, 2022 at 3 pm. Pending Studies at Discharge: No Stand-Alone Forms: [facility], Medications to Prevent Stroke Medications and DC Order Prescriptions: New atorvastatin 40 mg Tablet 40 mg PO QAM Qty: 30 0RF aspirin 81 mg Tablet,Delayed Release (Dr/Ec) 81 mg PO QAM Qty: 30 0RF Discharge Orders: Discharge Order (Routine); Ordered 01/01/22 Ordered By: Rodrigo Hernandez Admission Data Admit Date/Time: 12/31/21 18:31 Attending Provider: Rodrigo Hernandez Admit Provider: Farrukh Tinoco Primary Care Provider: Mak Avalos Other Providers: Farrukh Tinoco ; Timo Harris Other Interventions: Discharge Summary Assessment (RN) Last Done: 01/01/22 14:34
--- NOTE | 2022-01-01 14:57 | Pharmacy Report ---
- Date of Service January 01, 2022 - Pharmacy CVA/TIA Medication Review Medications to Prevent Stroke handout has been added to the patients discharge packet. Antiplatelet(s) * Aspirin 81 mg Cholesterol * High intensity statin: Atorvastatin 40 mg daily DVT Prophylaxis * Pharmacologic and mechanical DVT prophylaxis deferred due to independent in room Therapeutic Anticoagulation * No history of Afib/Aflutter noted Type 2 Diabetes * Patient does not have T2DM
--- NOTE | 2022-01-02 06:35 | Electrocardiogram Report ---
Test Reason : Blood Pressure : / mmHG Vent. Rate : 057 BPM Atrial Rate : 057 BPM P-R Int : 146 ms QRS Dur : 102 ms QT Int : 430 ms P-R-T Axes : -25 029 008 degrees QTc Int : 418 ms Sinus bradycardia Otherwise normal ECG When compared with ECG of 15-DEC-2019 18:18, T wave inversion now evident in Inferior leads Confirmed by Greg Barnett ([id number]) on 01/02/2022 6:34:43 AM Referred By: REFERRED SELF Confirmed By:Greg Barnett
== END 2022-01-01 15:30 | disposition hospice, home (50) ==
LOC: ED 15:31 → 2E 15:31 → SUATTDRO 18:31 → 2E 20:41